=== PATIENT | female | born 1965 | race Caucasian/White ===

== ENCOUNTER 2017-07-06 16:49 | Emergency (ER) | payer OTHER ==
[2017-07-06 17:14] VITALS: RESP 16; TEMP 98.1
--- NOTE | 2017-07-06 18:50 | EDPHY ---
H & P Stated Complaint: Back pain Time Seen by Provider: 07/06/17 18:50 - Personal History Current Tetanus/Diphtheria Vaccine: Unsure Current Tetanus Diphtheria and Acellular Pertussis (TDAP): Unsure - Medical/Surgical History Hx Asthma: No Hx Chronic Respiratory Disease: No Hx Diabetes: No Hx Cardiac Disease: No Hx Renal Disease: No Hx Cirrhosis: No Hx Alcoholism: No Hx HIV/AIDS: No Hx Splenectomy or Spleen Trauma: No - Social History Smoking Status: Never smoked Constitutional: Initial Vital Signs Temperature (C) 36.7 C 07/06/17 17:12 Heart Rate 72 07/06/17 17:12 Respiratory Rate 16 07/06/17 17:12 Blood Pressure 114/74 07/06/17 17:12 O2 Sat (%) 97 07/06/17 17:12 O2 Delivery Mode Room Air Allergies/Adverse Reactions: No Known Allergies Allergy (Unverified 07/06/17 17:10) Home Medications: Medication Instructions Recorded HYDROcodone/APAP 10/325 [[place] 1 - 2 each PO Q4-6PRN PRN #20 tab 07/06/17 10/325] predniSONE 40 mg PO DAILY #4 tab 07/06/17 Medical Decision Making ED Course/Re-evaluation: CHIEF COMPLAINT: Back pain HISTORY OF PRESENT ILLNESS: The patient is a 52 y/o female who complains of low back pain that began yesterday and has progressively worsened. This happens regularly when menstruating, but this time the pain is worse. She was unable to sleep last night due to the pain. She took Tylenol, but had no relief of her symptoms. 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 She cannot remember injuring her back. Denies pain radiating to her legs, bowel and bladder disfunction, fever, chills, headache or other worsening of symptoms. REVIEW OF SYSTEMS: A 10 point review of systems was performed and is negative with the exception of the elements mentioned in the history of present illness. PHYSICAL EXAM: HR, BP, O2 Sat, RR. Temp noted General Appearance: Alert, well hydrated, appropriate, and non-toxic appearing. Head: Atraumatic without scalp tenderness or obvious injury Eyes: Pupils equal, round, reactive to light and accommodation, EOMI, no trauma , no injection. Ears: Clear bilaterally, no perforation, normal landmarks Nose: Atraumatic, no rhinorrhea, clear. Throat: Mucus membranes moist. Neck: Supple, nontender, no lymphadenopathy. Respiratory: No retractions, no distress, no wheezes, and no accessory muscle use. Lungs are clear to auscultation bilaterally. Cardiovascular: Regular rate and rhythm, no murmurs, rubs, or gallops. Good capillary refill all extremities. Gastrointestinal: Abdomen is soft, nontender, non-distended, no masses, no rebound, no guarding, no peritoneal signs. Musculoskeletal: Tenderness to L4-5 on palpation without radiculopathy. Normal active ROM of all extremities, atraumatic. Neurological: Alert, appropriate, and interactive. Non-focal neuro. Skin: No rashes, good turgor, no nodules on palpation. Past medical history: Denies Past surgical history: Denies Family history: Noncontributory Social history: at bedside, lives in [place], nonsmoker DIFFERENTIAL DIAGNOSIS: The differential diagnosis for the patient's back pain included but was not limited to musculoskeletal pain, epidural abscess, herniated disk, spinal fracture, and intra-abdominal causes including urinary system. MEDICAL DECISION MAKING: The patient is a 52 y/o female who presents with tenderness to her low back. On exam she has tenderness to her L4-5 vertebrae on palpation without radiculopathy. There are no symptoms of cauda equina or neurological deficits. She cannot recall injuring her back recently. Plan on Vicodin, Prednisone, and Motrin prescriptions. Reassessed patient and discussed return precautions. She will be provided a work excuse note until 07/10/17. The patient is comfortable with this plan. Departure - Departure Disposition: Home, Routine, Self-Care Clinical Impression: Low back pain Qualifiers: Chronicity: unspecified Back pain laterality: midline Sciatica presence: without sciatica Qualified Code(s): M54.5 - Low back pain Condition: Good Instructions: Acute Low Back Pain (ED), Back Pain (ED) Additional Instructions: 1. Take Vicodin and Prednisone as prescribed. 2. Continue to move around for the next several days. Do not bend over, this could exacerbate your pain. 3. Follow up with your primary care provider in the next 3-5 days if your symptoms continue. 4. Return to the emergency department if you experience severe pain, fever, numbness, difficulty walking, change in location or nature of pain or other concerns Referrals: YOS[facility] SHARP [Other] - As per Instructions Stand Alone Forms: Work Excuse Prescriptions: HYDROcodone/APAP 325 [[place] [address]] 1 - 2 each PO Q4-6PRN PRN #20 tab PRN Reason: Pain, Moderate predniSONE 40 mg PO DAILY #4 tab Report Scribed for: Andres Muhammad Report Scribed by: Jacque Veronica Date of Report: 07/06/17 Time of Report: 18:58
[2017-07-06] MEDS ORDERED: IBUPROFEN 800 MG TAB PO ONE (19:09)
[2017-07-06] MEDS ORDERED: predniSONE 20 MG TAB PO ONE (19:09)
[2017-07-06] MEDS ORDERED: HYDROCOD/APAP 5/325 PREPACK#6 BTL TAKEHOME ONE (19:09)
[2017-07-06] MEDS ORDERED: IBUPROFEN 200 MG TAB PO ONE (19:20)
[2017-07-06] MEDS ORDERED: IBUPROFEN 600 MG TAB PO ONE (19:20)
[2017-07-06 19:31] VITALS: BP 130/96; PULSE 63; O2SAT 96
== END 2017-07-06 19:36 | disposition home or self-care (01) ==
DX: M54.5 Low back pain (principal)